=== PATIENT | female | born 1980 | race Asian ===

== ENCOUNTER 2017-01-21 12:43 | Emergency (ER) | payer SELFPAY ==
[~2017-01-21] VITALS: Ht 154.9 cm; Wt 69.9 kg
[2017-01-21] MEDS ORDERED: AUGMENTIN875 MG PO (13:32)
[2017-01-21] MEDS ORDERED: ULTRAM50 MG PO (13:39)
[2017-01-21 14:07] VITALS: BP 120/74
== END 2017-01-21 14:10 | disposition home or self-care (01) ==
LOC: EME 12:43
PROC: 3E0234Z Introduction of Serum, Toxoid and Vaccine into Muscle, Percutaneous Approach (ICD-10-PCS; principal; 2017-01-21)
DX: S81.851A Open bite, right lower leg, initial encounter (principal); S51.851A Open bite of right forearm, initial encounter; W54.0XXA Bitten by dog, initial encounter; Z23 Encounter for immunization
CPT/HCPCS: 73090; 73590; 99281; 99284